=== PATIENT | male | born 1970 ===

== ENCOUNTER 2018-10-19 17:09 | Emergency (ER) | payer BC ==
[2018-10-19] MEDS ORDERED: ASPIRIN 81 MG CHEWABLE TABLET PO ONE (17:13)
--- NOTE | 2018-10-19 17:14 | Emergency Department Record ---
History of Present Illness - General Chief Complaint: Chest Pain Stated Complaint: CHEST PAIN Time Seen by Provider: 10/19/18 17:12 Source: Patient, RN notes reviewed - History of Present Illness Initial Comments: patient is having some left anterior chest wall pain and left shoulder pain. patient said his pain is a dull ache and it feels better when he raises his arm ove his head. Patient has been drywalling for the last 3 weeks and he also drives a gas truck.[facility] May 2018 with 4 stents and his carrot tier is Dr Carias. No family Dr. patient said the dull ache started yesterday and he also may have taken a double dose of his medications accidentally MD Complaint: Chest pain Onset/Timin -: Days(s) Pain Location: Left chest - Related Data Home Medications Medication Instructions Recorded Confirmed Last Taken Aspirin [Adult Low Dose Aspirin EC] 81 mg PO DAILY 10/19/18 10/19/18 10/19/18 Atorvastatin Calcium [Lipitor] 20 mg PO DAILY 10/19/18 10/19/18 10/19/18 Carvedilol [Coreg] 6.25 mg PO DAILY 10/19/18 10/19/18 10/19/18 Lisinopril 10 mg PO DAILY 10/19/18 10/19/18 10/19/18 Ticagrelor [Brilinta] 60 mg PO DAILY 10/19/18 10/19/18 10/19/18 Allergies Allergy/AdvReac Type Severity Reaction Status Date / Time Penicillins Allergy Unknown PT UNSURE Verified 10/19/18 17:11 OF REACTION Review of Systems Reviewed: No additional complaints except as noted below Constitutional: Reports: As per HPI. Denies: Chills, Fever, Malaise, Night sweats, Weakness, Weight change Eyes: Reports: As per HPI. Denies: Eye discharge, Eye pain, Photophobia, Vision change ENT: Reports: As per HPI. Denies: Congestion, Dental pain, Ear pain, Epistaxis, Hearing loss, Throat pain Respiratory: Reports: As per HPI. Denies: Cough, Dyspnea, Hemoptysis, Stridor, Wheezes Cardiovascular: Reports: As per HPI, Chest pain. Denies: Arrhythmia, Dyspnea on exertion, Edema, Murmurs, Orthopnea, Palpitations, Paroxysmal nocturnal dyspnea, Rheumatic Fever, Syncope Endocrine: Reports: As per HPI. Denies: Fatigue, Heat or cold intolerance, Polydipsia, Polyuria Gastrointestinal: Reports: As per HPI. Denies: Abdominal pain, Constipation, Diarrhea, Hematemesis, Hematochezia, Melena, Nausea, Vomiting Genitourinary: Reports: As per HPI. Denies: Dysuria, Frequency, Hematuria, Incontinence, Retention, Testicular pain, Testicular mass, Urgency Musculoskeletal: Reports: As per HPI. Denies: Arthralgia, Back pain, Gout, Joint swelling, Myalgia, Neck pain Skin: Reports: As per HPI. Denies: Bruising, Change in color, Change in hair/nails, Lesions, Pruritus, Rash Neurological: Reports: As per HPI. Denies: Abnormal gait, Confusion, Headache, Numbness, Paresthesias, Seizure, Tingling, Tremors, Vertigo, Weakness Psychiatric: Reports: As per HPI. Denies: Anxiety, Auditory hallucinations, Depression, Homicidal thoughts, Suicidal thoughts, Visual hallucinations Hematological/Lymphatic: Reports: As per HPI. Denies: Anemia, Blood Clots, Easy bleeding, Easy bruising, Swollen glands Physical Exam - General General Appearance: Alert, Oriented x3, Cooperative, No acute distress - Head Head exam: Normal inspection - Eye Eye exam: Normal appearance, PERRL Pupils: Normal accommodation - ENT ENT exam: Normal exam, Mucous membranes moist, Normal external ear exam, Normal orophraynx, TM's normal bilaterally Ear exam: Normal external inspection. negative: External canal tenderness Nasal Exam: Normal inspection. negative: Discharge, Sinus tenderness Mouth exam: Normal external inspection, Tongue normal Teeth exam: Normal inspection. negative: Dental caries Throat exam: Normal inspection. negative: Tonsillar erythema, Tonsillar exudate - Neck Neck exam: Normal inspection, Full ROM. negative: Tenderness - Respiratory Respiratory exam: Normal lung sounds bilaterally. negative: Respiratory distress - Cardiovascular Cardiovascular Exam: Regular rate, Normal rhythm, Normal heart sounds - GI/Abdominal GI/Abdominal exam: Soft, Normal bowel sounds. negative: Tenderness - Rectal Rectal exam: Deferred - exam: Deferred - Extremities Extremities exam: Normal inspection, Full ROM, Normal capillary refill. negative: Tenderness - Back Back exam: Reports: Normal inspection, Full ROM. Denies: Muscle spasm, Rash noted, Tenderness - Neurological Neurological exam: Alert, Normal gait, Oriented X3, Reflexes normal - Psychiatric Psychiatric exam: Normal affect, Normal mood - Skin Skin exam: Dry, Intact, Normal color, Warm Course - Reevaluation(s) Reevaluation #1: discussed case with Dr. Wong and will transfer to [facility] 10/19/18 18:44 Medical Decision Making - Lab Data Result diagrams: 10/19/18 17:30 10/19/18 17:30 Disposition Clinical Impression: Chest pain Qualifiers: Chest pain type: unspecified Qualified Code(s): R07.9 - Chest pain, unspecified CAD (coronary artery disease) Qualifiers: Coronary Disease-Associated Artery/Lesion type: [place] artery [place] vs. tra nsplanted heart: [place] heart Associated angina: with unspecified angina Qualified Code(s): I25.119 - Atherosclerotic heart disease of [place] coronary artery with unspecified angina pectoris Disposition: Acute Care Hospital Transfer Condition: (2) Stable Forms: Patient Portal Access Time of Disposition: 18:46 Quality - Quality Measures Quality Measures: N/A - Blood Pressure Screening Does Patient Have Any of the Following: No Blood Pressure Classification: Normal BP Reading Systolic Measurement: 104 Diastolic Measurement: 78 Screening for High Blood Pressure: < Normal BP, F/U Not Required > [[id number]]
[2018-10-19 17:38] LABS: ABSOLUTE NEUTROPHIL COUNT 5.77; BASO % 0.2 % (0-6); EOS % 3.6 % (0-6); GRAN % 66.9 % (47-80); HEMOGLOBIN 14.7 gm/dl (14.0-18.0); LYMPH % 21.7 % (16-45); MEAN CELL VOLUME 90.9 fl (81-97); MEAN CORPUSCULAR HEMOGLOBIN 31.1 pg (27-33); MEAN CORPUSCULAR HGB CONC 34.2 g/dl (32-36); MEAN PLATELET VOLUME 9.1 fl (7.4-10.4); MONO % 7.6 % (0-9); PLATELET COUNT 271 K/uL (130-400); RED BLOOD COUNT 4.73 M/uL (4.40-5.70); RED CELL DISTRIBUTION WIDTH 13.3 % (11.5-14.5); WHITE BLOOD COUNT W/O DIFF 8.6 K/uL (4.2-12.2)
[2018-10-19 17:52] LABS: BLOOD UREA NITROGEN 9 mg/dL (6-20); CREATININE 0.7 mg/dL (0.7-1.2); EST GLOMERULAR FILTRATION RATE > 60 mL/min
[2018-10-19] MEDS ORDERED: 0.9 % SODIUM CHLORIDE 1000ML 1,000 ML IV PRN (17:52)
[2018-10-19] MEDS ORDERED: NITROGLYCERIN 0.4MG SL TABLET #25 BTL SL PRN (17:52)
[2018-10-19 18:00] LABS: GLUCOSE,RANDOM 110 mg/dL (74-109)
--- NOTE | 2018-10-21 09:34 | RADIOLOGY REPORT ---
EXAM: PORTABLE CHEST HISTORY: LEFT SIDED CHEST PAIN SINCE YESTERDAY. WORSENING SYMPTOMS. TECHNIQUE: Two portable AP upright views of the chest were obtained. Comparison: None. FINDINGS: The heart, mediastinum, and pulmonary vasculature are normal. The lungs are clear. There is no pneumothorax or effusion. The bones appear intact. IMPRESSION: NO ACUTE CHEST PATHOLOGY. JOB NUMBER: [id number] MTDD
== END 2018-10-19 19:22 | disposition short-term general hospital (02) ==
LOC: ER 17:09
DX: R07.89 Other chest pain (principal); I25.119 Atherosclerotic heart disease of native coronary artery with unspecified angina pectoris; I25.2 Old myocardial infarction
CPT/HCPCS: 71045; 80048; 84484; 85025; 85730; 99285